=== PATIENT | female | born 1995 | race Caucasian/White ===

== ENCOUNTER 2022-08-26 00:11 | Emergency (ER) | payer OTHER ==
[~2022-08-26] VITALS: Ht 157.5 cm; Wt 75.3 kg
--- NOTE | 2022-08-26 01:30 | NUR ---
URINE COLLECTED AND SENT TO LAB
[2022-08-26 01:45] VITALS: BP 122/66
[2022-08-26] MEDS ORDERED: MORPHINE SULFATE INJ 4 MG/ML DISP.SYRIN ONE (02:09)
[2022-08-26] MEDS ORDERED: ONDANSETRON HCL/PF 4 MG/2 ML VIAL ONE (02:09)
--- NOTE | 2022-08-26 02:20 | NUR ---
RAC 18G PIV STARTED. BLOOD DRAWN AND SENT TO LAB
[2022-08-26] MEDS ORDERED: IV NS 0.9% 1,000 ML BAG IV ONE (02:30)
[2022-08-26] MEDS ORDERED: ONDANSETRON HCL/PF 4 MG/2 ML VIAL IVP ONE (02:30)
[2022-08-26] MEDS ORDERED: MORPHINE SULFATE INJ 2 MG/ML DISP.SYRIN IV ONE (02:30)
[2022-08-26 02:36] LABS: BASOPHILS % (AUTO) 0.2 % (0.0-2.0); EOSINOPHILS % (AUTO) 3.1 % (0.0-6.0); HEMATOCRIT 37 % (33-45); HEMOGLOBIN 12.7 g/dL (11.5-14.8); LYMPHOCYTES # (AUTO) 2.3 K/uL (0.8-4.8); LYMPHOCYTES % (AUTO) 47.8 % (20.0-44.0); MEAN CORPUSCULAR HGB CONC 34 g/dl (31.0-36.0); MEAN CORPUSCULAR VOLUME 90 fL (82-100); MONOCYTES # (AUTO) 0.4 K/uL (0.1-1.30); MONOCYTES % (AUTO) 8.9 % (2.0-12.0); NEUTROPHILS # (AUTO) 1.9 K/uL (1.8-8.9); PLATELET COUNT (AUTO) 147 K/uL (150-450); RED BLOOD CELL COUNT(AUTO) 4.15 MIL/uL (4.0-5.2); WHITE BLOOD COUNT (AUTO) 4.8 K/uL (4.3-11.0)
[2022-08-26 02:48] LABS: BILIRUBIN,URINE NEGATIVE (NEGATIVE); COLOR,URINE YELLOW (YELLOW); LEUKOCYTE ESTERASE ,URINE 3+ (NEGATIVE); NITRITE, URINE NEGATIVE (NEGATIVE); PROTEIN,URINE NEGATIVE (NEGATIVE); UGLUCOSE NEGATIVE (NEGATIVE); UROBILINOGEN,URINE 0.2 EU/dL (0.2)
[2022-08-26 02:50] LABS: ALBUMIN 3.9 g/dL (3.4-5.0); BILIRUBIN,DIRECT 0.2 mg/dL (0.0-0.2); BILIRUBIN,TOTAL 0.6 mg/dL (0.2-1.0); CALCIUM, SERUM 8.9 mg/dL (8.5-10.1); CREATININE 0.8 mg/dL (0.6-1.3); POTASSIUM 3.4 mmol/L (3.5-5.1); TOTAL PROTEIN, SERUM 7.1 g/dL (6.4-8.2)
[2022-08-26 02:59] LABS: BACTERIA,URINE Rare /HPF (None Seen); RBC,URINE 0-2 /HPF (0-2); SQUAMOUS EPITHELIAL CELL,UR Few /HPF (None Seen)
[2022-08-26] MEDS ORDERED: IOHEXOL-300 100 ML VIAL IV ONE (03:10)
[2022-08-26] MEDS ORDERED: CT SWABBABLE VALVE TRANS SET 1 EA INFUS.SET MC ONE (03:11)
[2022-08-26] MEDS ORDERED: IV NS 0.9% 250 ML IV ONE (03:11)
[2022-08-26] MEDS ORDERED: CEFTRIAXONE 1GM BAG (ER ONLY) 50 ML IV ONE (03:29)
[2022-08-26] MEDS ORDERED: CEFTRIAXONE 1GM BAG (ER ONLY) 1 GM/50 ML PIGGYBACK IV ONE (03:30)
[2022-08-26] MEDS ORDERED: ONDA4TAB11 PO ×2 (03:48→03:52)
[2022-08-26] MEDS ORDERED: SULF1TAB48 PO ×2 (03:48→03:52)
[2022-08-26] MEDS ORDERED: KETO10TA2 PO ×2 (03:48→03:52)
--- NOTE | 2022-08-26 04:01 | NUR ---
Patient discharged to home in stable condition. Written and verbal after care instructions given. Patient verbalizes understanding of instruction.
--- NOTE | 2022-08-26 04:01 | NUR ---
IV removed. Catheter intact and site benign. Pressure and 4x4 applied to site. No bleeding noted.
== END 2022-08-26 04:14 | disposition home or self-care (01) ==
LOC: ER 00:15
DX: N39.0 Urinary tract infection, site not specified (principal); R10.30 Lower abdominal pain, unspecified; Z79.899 Other long term (current) drug therapy
CPT/HCPCS: 99285; 74177; 96365; 96375; 96361; 85025; 80048; 87086; 83690; 80076; 84703; 81001; 36415; 85730; J2270; J2405; J7050; A4223; J0696; Q9967